=== PATIENT | female | born 1985 | race Caucasian/White ===

== ENCOUNTER 2016-06-15 11:41 | Emergency (ER) | payer OTHER ==
[~2016-06-15] VITALS: Wt 75.0 kg
[~2016-06-15 11:41] MED LIST: FOLI-49 PO; IBUP-1542 PO; IBUP400T22 PO; OSLT75C PO; PRENAT PO
[2016-06-15] MEDS ORDERED: ACETAMINOPHEN 325 MG TAB PO STA (13:30)
--- NOTE | 2016-06-15 13:37 | ERD ---
ER Documentation Chief Complaint Date/Time DATE: 06/15/16 TIME: 13:36 Chief Complaint BILATERAL ARM TINGLING FROM HANDS TO ELBOWS FOR 3 MOS. NO TRAUMA HPI This is a 30-year-old female presenting to the emergency department complaining of bilateral numbness and tingling from the elbow to the hands bilaterally for 3 months that comes and goes. Patient states that it has been more constant for the past week. Patient also complains of dizziness when she gets up from a chair, she feels like the room is spinning. She admits to having blurry vision. She denies any chest pain or shortness of breath. Denies any neck or back pain. Denies fevers ROS All systems reviewed and are negative except as per history of present illness. Medications Home Meds Active Scripts Nitrofurantoin Monohyd Macrocr* (Macrobid*) 100 Mg Capsr, 100 MG PO BID for 7 Days, CAP Prov:TRE ALCALA PA-C 06/15/16 Acetaminophen* (Tylenol*) 325 Mg Tablet, 2 TAB PO Q6 Y for PAIN AND OR ELEVATED TEMP, #30 TAB Prov:TRE ALCALA PA-C 06/15/16 Ibuprofen* (Motrin*) 400 Mg Tab, 400 MG PO Q6, #30 TAB Prov:MARLON OROZCO 02/23/16 Oseltamivir Phosphate* (Tamiflu*) 75 Mg Capsule, 75 MG PO BID for 5 Days, CAP Prov:MARLON OROZCO 02/23/16 Ibuprofen* (Ibuprofen*) 600 Mg Tab, 600 MG PO Q6, #20 TAB 0 Refills Prov:MARIKA GUZMAN MD 09/02/15 Reported Medications Folic Acid* (Folic Acid*) 1 Mg Tablet, 1 MG PO DAILY, TAB 12/25/13 Multivit/Min/Fol Ac/Iron/Pren* ( S*) 1 Tab Tab, 1 TAB PO DAILY, TAB 12/22/13 Allergies Allergies: Coded Allergies: No Known Drug Allergies (Verified Allergy, Unknown, 07/29/15) PMhx/Soc History of Surgery: No Anesthesia Reaction: No Hx Neurological Disorder: No Hx Respiratory Disorders: No Hx Cardiac Disorders: No Hx Psychiatric Problems: No Hx Miscellaneous Medical Probl: No Hx Alcohol Use: No Hx Substance Use: No Hx Tobacco Use: No Smoking Status: Never smoker Physical Exam Vitals Vital Signs Date Time Temp Pulse Resp B/P Pulse Ox O2 Delivery O2 Flow Rate FiO2 06/15/16 11:59 98.3 71 20 159/94 98 Physical Exam GENERAL: well-developed/well-nourished, in no apparent distress, non-toxic appearing Patient is morbidly obese HENT: NC/AT, bilateral tympanic membrane is normal with good cone of light, nares patent, oropharynx clear without exudates EYES: Conjunctiva normal, PERRLA, EOMI, no nystagmus noted NECK: Supple, no lymphadenopathy PULM: CTA bilaterally, no rales, rhonchi, or wheezing heard CV: Normal S1S2, RRR, good capillary refill GI: Soft, non-distended, normal bowel sounds, non-tender BACK: No midline tenderness, no masses, No CVAT. NTTP EXT: No clubbing, cyanosis, or edema NEURO: Alert and orientated to person, place, and time. CN II-IIX intact. Gait and coordination were normal. Hand curb setter helper strength were equal and within normal limits SKIN: Intact, normal turgor PSYCH: Normal mood and mentation, patient denied SI Result Diagram: 06/15/16 1345 06/15/16 1345 Results 24 hrs Laboratory Tests Test 06/15/16 13:45 Alanine Aminotransferase (ALT/SGPT) 34IU/L Albumin 4.4g/dl Albumin/Globulin Ratio 1.29 Alkaline Phosphatase 75IU/L Anion Gap 16 Aspartate Amino Transf (AST/SGOT) 20IU/L Basophils # 0.010^3/ul Basophils % 0.4% Blood Urea Nitrogen 7mg/dl Calcium Level Pending Carbon Dioxide Level 28mmol/L Chloride Level 104mmol/L Creatinine 0.55mg/dl Direct Bilirubin 0.00mg/dl Eosinophils # 0.210^3/ul Eosinophils % 2.5% Globulin 3.40g/dl Glucose Level 80mg/dl Hematocrit 41.0% Hemoglobin 13.7g/dl Indirect Bilirubin 0.5mg/dl Lymphocytes # 3.210^3/ul Lymphocytes % 32.7% Mean Corpuscular Hemoglobin 29.8pg Mean Corpuscular Hemoglobin Concent 33.5g/dl Mean Corpuscular Volume 89.2fl Mean Platelet Volume 7.6fl Monocytes # 0.610^3/ul Monocytes % 5.7% Neutrophils # 5.710^3/ul Neutrophils % 58.7% Nucleated Red Blood Cells # 0.010^3/ul Nucleated Red Blood Cells % 0.0/100WBC Platelet Count 86128^3/UL Potassium Level 4.3mmol/L Red Blood Count 4.6010^6/ul Red Cell Distribution Width 12.8% Sodium Level 144mmol/L Total Bilirubin 0.5mg/dl Total Protein 7.8g/dl Urine Bilirubin NEGATIVE Urine Clarity CLEAR Urine Color LT. YELLOW Urine Glucose NEGATIVE% Urine Hemoglobin TRACE Urine Ketones NEGATIVE Urine Leukocyte Esterase 1+ Urine Microscopic RBC Pending Urine Microscopic WBC Pending Urine Nitrite NEGATIVE Urine Specific [place] 1.010 Urine Total Protein NEGATIVE Urine Urobilinogen 0.2 E.U./dL Urine pH 7.5 White Blood Count 9.810^3/ul Current Medications Medications (Trade) Dose Ordered Sig/Janet Route PRN Reason Start Time Stop Time Status Last Admin Dose Admin Acetaminophen (Tylenol Tab) 650 mg ONCE STAT PO 06/15/16 13:30 06/15/16 13:31 DC 06/15/16 13:53 Procedures/MDM This is a 30-year-old female who is obese presenting to the emergency room complaining of bilateral numbness and tingling to her upper extremities from elbows to hands for the past 3 months, dizziness, headache for the past week. She did not have any dizziness in the ED On examination patient had a normal neurological exam. She was speaking clearly, ambulating well. I do not believe there is any emergent cause of the intermittent paresthesias. It may be related to anxiety. Patient did not have any neck or back pain however I discussed that she is suitable to follow-up with her primary care physician, they m,ay consider possible MRI for radiculopathy of paresthesias. My differential diagnoses include tension, migraine, and cluster headache, overuse medication headache, subarachnoid hemorrhage, meningitis, stroke. Neurology exam was normal and I don't recommend a CT scan at this time. EKG was unremarkable for acute cardiopulmonary conditions. Lab work was done. CBC did not show any evidence of leukocytosis or anemia. Urinalysis showed + leukocyte esterase therefore patient will be treated for a urinary tract infection. Patient is suitable to follow-up with her primary care physician tomorrow. Discussed return to the ER for any worsening symptoms. She is hemodynamically stable and neurovascularly intact. Prescriptions Macrobid and Tylenol were given. Discussed to follow up with a primary care physician in the next couple days. Return to the ER if condition worsens or not improving as expected. Patient agreed and understood this plan. EKG: read and signed off by myself and Rate/Rhythm: 72 bpm Normal Sinus Rhythm QRS, ST, T-waves: inverted T waves in V1, flattened T waves in III; No changes consistent w/ acute ischemia Impression: No evidence of ischemia or arrhythmia Departure Diagnosis: Primary Impression: Dizziness Additional Impressions: Paresthesia UTI (urinary tract infection) Urinary tract infection type: acute cystitis Hematuria presence: without hematuria Qualified Code: N30.00 - Acute cystitis without hematuria Condition: Stable TRE ALCALA PA-C Jun 15, 2016 13:37
[2016-06-15 13:58] LABS: BASOPHILS % 0.4 % (0.0-2.0); EOSINOPHILS # 0.2 10^3/ul (0.0-0.5); EOSINOPHILS % 2.5 % (0.0-7.0); HEMOGLOBIN 13.7 g/dl (12.0-16.0); LYMPHOCYTES # 3.2 10^3/ul (0.8-2.9); LYMPHOCYTES % 32.7 % (15.0-51.0); MEAN CORPUSCULAR HEMOGLOBIN 29.8 pg (29.0-33.0); MEAN CORPUSCULAR HGB CONC 33.5 g/dl (32.0-37.0); MEAN CORPUSCULAR VOLUME 89.2 fl (82.0-101.0); MEAN PLATELET VOLUME 7.6 fl (7.4-10.4); MONOCYTE # 0.6 10^3/ul (0.3-0.9); MONOCYTES % 5.7 % (0.0-11.0); NEUTROPHIL # 5.7 10^3/ul (1.6-7.5); NEUTROPHILS % 58.7 % (39.0-77.0); PLATELET COUNT 324 10^3/UL (140-440); RED CELL DISTRIBUTION WIDTH 12.8 % (11.5-14.5); UNCORRECTED WBC 9.8 10^3/ul (4.8-10.8); WHITE BLOOD COUNT 9.8 10^3/ul (4.8-10.8)
[2016-06-15] MEDS ORDERED: IBUP-1542 PO (13:58)
[2016-06-15] MEDS ORDERED: ACET325T33 PO (14:02)
[2016-06-15 14:05] LABS: ADD UMIC YES; URINE BILIRUBIN (Dip) NEGATIVE (NEGATIVE); URINE BLOOD (Dip) TRACE (NEGATIVE); URINE COLOR LT. YELLOW (YELLOW); URINE GLUCOSE (Dip) NEGATIVE (NEGATIVE); URINE KETONES (Dip) NEGATIVE (NEGATIVE); URINE LEUKOCYTE ESTERASE (Dip) 1+ (NEGATIVE); URINE NITRITE (Dip) NEGATIVE (NEGATIVE); URINE TOTAL PROTEIN (Dip) NEGATIVE (NEGATIVE); URINE UROBILINOGEN (Dip) 0.2 E.U./dL (0.1-1.0)
[2016-06-15 14:06] LABS: ALBUMIN 4.4 g/dl (3.3-4.9); CONDITION 1; POTASSIUM 4.3 mmol/L (3.5-5.1)
[2016-06-15 14:08] LABS: BILIRUBIN,INDIRECT 0.5 mg/dl (0-1.1); BILIRUBIN,TOTAL 0.5 mg/dl (0.2-1.3); CREATININE 0.55 mg/dl (0.44-1.00)
[2016-06-15 14:09] LABS: ALBUMIN/GLOBULIN RATIO 1.29; CALCIUM 9.6 mg/dl (8.4-10.2); TOTAL PROTEIN 7.8 g/dl (6.1-8.1)
[2016-06-15] MEDS ORDERED: NITR-58 PO (14:09)
[2016-06-15 14:12] LABS: SQUAMOUS EPITHELIAL CELL,UR MODERATE; URINE RBCS 0-2 /HPF (0)
== END 2016-06-15 15:02 | disposition home or self-care (01) ==
LOC: FTE 11:41
DX: R42 Dizziness and giddiness (principal); R20.2 Paresthesia of skin; N30.00 Acute cystitis without hematuria
CPT/HCPCS: 80053; 81001; 81003; 85025; 93005; Z7502; Z7610

== ENCOUNTER 2017-02-22 08:34 | Outpatient (CLI) | END 2017-02-22 09:28 | disposition home or self-care (01) ==

== ENCOUNTER 2017-02-22 09:37 | Emergency (ER) | END 2017-02-22 12:43 | disposition left against medical advice (07) | DX: O99.353 Diseases of the nervous system complicating pregnancy, third trimester (principal); G56.03 Carpal tunnel syndrome, bilateral upper limbs; Z3A.32 32 weeks gestation of pregnancy ==

== ENCOUNTER 2017-04-17 23:20 | Inpatient (IN) | payer OTHER ==
[~2017-04-17] VITALS: Ht 154.9 cm; Wt 94.1 kg
[~2017-04-17 23:20] MED LIST changes: -FOLI-49 PO; -IBUP-1542 PO; -IBUP400T22 PO; -OSLT75C PO
[2017-04-17 23:53] VITALS: Ht 154.9 cm; Wt 94.1 kg
[2017-04-17 23:54] VITALS: BP 107/63; PULSE 94; RESP 18
[2017-04-18] MEDS: OXYTOCIN 30 UNITS/LR 500 ML IV SCH
--- NOTE | 2017-04-18 01:56 | RADRPT ---
PROCEDURE: Limited OB ultrasound CLINICAL INDICATION: Labor. TECHNIQUE: Limited sonographic evaluation of the gravid uterus was performed to assess the amnioti c fluid volume. COMPARISON: None. FINDINGS: Single live intrauterine with cardiac heart rate of 134 beats per minute is identifi ed. The amniotic -fluid volume is 16.4 cm,. Fetus is in cephalic presentation. The placenta is lo cated posterior. IMPRESSION: 1. Amniotic fluid volume 16.4 cm. RPTAT: HMVK .Remigio Wiseman MD, Date Time Electronically viewed and signed by .Remigio Wiseman MD, on 04/18/2017 01:56 .K/
[2017-04-18] MEDS: LACTATED RINGER'S 1,000 ML IV SCH ×3 (02:55→18:19)
[2017-04-18] MEDS ORDERED: AMPICILLIN 2 GM/NS (PMX) 100 ML IV ONE (03:00)
[2017-04-18] MEDS ORDERED: CARBOPROST 250 MCG INJ IM PRN ×2 (03:00→23:30)
[2017-04-18] MEDS ORDERED: BUTORPHANOL 2 MG INJ IV PRN (03:00)
[2017-04-18] MEDS ORDERED: OXYTOCIN 30 UNITS/LR 500 ML IV PRN ×2 (03:00→23:30)
[2017-04-18] MEDS ORDERED: METHYLERGONOVINE 0.2 MG INJ IM PRN ×2 (03:00→23:30)
[2017-04-18] MEDS ORDERED: MISOPROSTOL 200 MCG TAB PR PRN ×2 (03:00→23:30)
[2017-04-18] MEDS ORDERED: LIDOCAINE 1% (MPF) 30 ML INJ INJ PRN (03:00)
[2017-04-18] MEDS ORDERED: OXYTOCIN 30 UNITS/LR 500 ML IV SCH ×3 (03:00)
[2017-04-18] MEDS ORDERED: IBUPROFEN 600 MG TAB PO PRN (03:00)
[2017-04-18] MEDS ORDERED: LACTATED RINGER'S 1,000 ML IV PRN (04:00)
--- NOTE | 2017-04-18 04:01 | HP ---
Date/Time of Note Date/Time of Note DATE: 04/18/17 TIME: 03:56 OB - History Hx of Present Free Text/Dictation 31 Year-old with SIUP at 39 6/7 wks presents with a chief complaint of decreased FM and UCS. She has been receiving her care with Dr. Dubose. She denies nausea, vomiting, shortness of breath, chest pain, and abdominal pain between contractions, headache, visual changes, vaginal bleeding or LOF. Chief Complaint: ucs, DFM Estimated Due Date: Apr 19, 2017 : 6 Para: 5 Spontaneous : 0 Care: None Ultrasounds: Normal mid trimester US Obstetrical Complications: None Medical Complications: None Past Family/Social History * Past Medical, Surgical, Family and Obstetric Histories reviewed from chart. Blood Type: A+ Rubella: immune RPR/VDRL: Negative GBS Status: Unknown HBsAG: Negative OB Admission Exam Vital Signs Vital Signs Vital Signs Date Time Temp Pulse Resp B/P Pulse Ox O2 Delivery O2 Flow Rate FiO2 04/17/17 23:54 97.7 94 18 107/63 Room Air Physical Exam Heart: Rhythm Normal Abdomen: WNL Extremities: Normal Reflexes: Normal Cervical Dilatation: 3cm Effacement: 75% Station: -3 Membranes: Intact Heart Rate: 140's Accelerations: Accelerations Present Decelerations: No Decelerations Varibility: Moderate Contractions on Admission: 6-10 Minutes Apart OB Assessment/Plan Other plan: 31 Year-old with SIUP at 39 6/7 wks with decreased FM and UCS - FHR: No sign of metabolic acidosis- Category I - Continious EFM, toco - CBC, blood type and screen - Analgesia options with R/B/A discussed in detail with patient - Epidural per patient request - Please see the orders - A+/Rubella: Immune/GBS: unk Admission, procedures, expectations, risks and possible complications have been discussed in detail with the patient. Risk of vaginal delivery including but not limited to bleeding, infection, cervical laceration, placental retention, injury to fetus, blood transfusion, blood transfusion related infection, risk of anesthesia, adhesion, cervical laceration, episiotomy/laceration, possible delivery with risk of bleeding, infection, injury to other organs ( bowel, bladder, ureter, vessels, nerves), injury to fetus, blood transfusion, blood transfusion related infection, risk of anesthesia, scar and hernia formation, needs for future , removal of uterus or any other indicated surgery discussed with the patient. She expressed understanding and repeats the risks. All of her questions were answered; all appropriate consents will be signed. PHYSICIAN'S VERIFICATION OF INFORMED CONSENT: The patient was counseled regarding the procedure, its indications, risks, potential complications and alternatives and any questions were answered. Consent was obtained. PLANNED PROCEDURE/TREATMENT: Vaginal delivery with possible vacuum/forceps delivery episiotomy, repair of laceration possible delivery PHYSICIAN'S VERIFICATION OF INFORMED CONSENT FOR BLOOD TRANSFUSION: There is a reasonable possibility that blood transfusion will be necessary as a result of the patient's procedure. I have discussed the following with the patient/patient's legal medical field representative: An explanation of the benefits and risks of the transfusion of blood or blood products and the possible alternatives. Al questions have been answered to the patient's/patients legal representatives satisfaction. INFORMED CONSENT: The patient has been informed of: - The nature of the proposed care, treatment, services, medic- Potential benefits, risks or side effects, including potential problems related to recuperation. - The likelihood of achieving care treatment and service goals. - Reasonable alternatives to the proposed care, treatment and service. - The relevant risks, benefits and side effects related to alternatives, including the possible results of not receiving care, treatment and services. - When indicated, any limitations on the confidentiality of information learned from or about the patient. - If appropriate, the risks, benefits and alternatives of the drugs to be used for sedation/analgesia including moderate sedation. - If appropriate, patient has been provided information on the risks, benefits and alternatives to the transfusion of blood and/or blood products. INDIRA GONZALEZ Apr 18, 2017 04:01
[2017-04-18 04:08] LABS: BASOPHILS % 0.3 % (0.0-2.0); EOSINOPHILS # 0.1 10^3/ul (0.0-0.5); EOSINOPHILS % 1.3 % (0.0-7.0); HEMATOCRIT 27.3 % (37.0-47.0); HEMOGLOBIN 8.9 g/dl (12.0-16.0); LYMPHOCYTES # 2.7 10^3/ul (0.8-2.9); LYMPHOCYTES % 25.3 % (15.0-51.0); MEAN CORPUSCULAR HEMOGLOBIN 26.4 pg (29.0-33.0); MEAN CORPUSCULAR HGB CONC 32.6 g/dl (32.0-37.0); MEAN PLATELET VOLUME 10.2 fl (7.4-10.4); MONOCYTE # 0.8 10^3/ul (0.3-0.9); MONOCYTES % 7.2 % (0.0-11.0); NEUTROPHIL # 6.9 10^3/ul (1.6-7.5); NEUTROPHILS % 65.1 % (39.0-77.0); PLATELET COUNT 185 10^3/UL (140-415); RED BLOOD COUNT 3.37 10^6/ul (4.20-5.40); WHITE BLOOD COUNT 10.7 10^3/ul (4.8-10.8)
[2017-04-18 04:21] LABS: INR 1.03; PROTIME 13.5 Sec (12.2-14.2); PT RATIO 1.1
[2017-04-18 04:22] LABS: PARTIAL THROMBOPLASTIN TIME 27.1 Sec (25.0-35.0)
--- NOTE | 2017-04-18 05:08 | TRIAGE ---
OB Triage Datetime Report Generated by CPN: 04/18/2017 05:08 Datetime: 04/18/2017 02:25 Stage of : OB Triage Datetime: 04/18/2017 02:00 Stage of : OB Triage Vaginal Exam Dilatation (cms): 3.0 Effacement (%): 60 Station: -3 Exam By: JAI EDWARDS Membrane Status: Intact Datetime: 04/18/2017 01:50 Stage of : OB Triage Datetime: 04/18/2017 01:28 Stage of : OB Triage Datetime: 04/18/2017 01:00 Stage of : OB Triage Comments: PT AMBULATED IN THE UNIT HALLWAY. Datetime: 04/18/2017 00:14 Comments: MONITORS OFF, INSTRUCTED PT WALK IN THE UNIT. Datetime: 04/18/2017 00:10 Stage of : OB Triage Datetime: 04/17/2017 23:58 Stage of : OB Triage Vaginal Exam Dilatation (cms): 3.0 Effacement (%): 60 Station: -3 Exam By: JAI EDWARDS Membrane Status: Intact Datetime: 04/17/2017 23:51 Stage of : OB Triage Maternal Assessment Level of Consciousness: Fully Conscious Maternal Assessment Level of Consciousness: Fully Conscious DTR's/Clonus: DTRs 2+; No Clonus DTR's/Clonus: DTRs 2+ Headache: Denies Blurred Vision: No Respiratory Effort: Unlabored; Regular Rhythm; Equal Expansion Breath Sounds, Left: Clear and Equal Breath Sounds, Right: Clear and Equal Nausea/Vomiting: Denies RUQ Epigastric Pain: Denies Lower Extremities Edema: None Upper Extremities Edema: None Facial Edema: None Temperature Route: Oral Fall Risk Assessment History of Falling: (0) No Secondary Diagnosis: (0) No Ambulatory Aid: (0) Bedrest/Nurse Assist IV Therapy: (0) No Gait: (0) Normal/Bedrest/Immobile Mental Status: (0) Oriented to Own Ability Fall Score: 0 Fall Risk Score Definition: No Risk: No action required Labor Evaluation Frequency: IRREGULAR Monitor Mode: External Duration (sec)2399: 60-70 (Annotations: UTERINE IRRITABILITY NOTED) Heart Rate FHR Baseline Rate: 135 Monitor Mode: External US Variability: Moderate 6-25 bpm Accelerations: 15X15 Decelerations: None Category: Category I Pain Assessment Pain Scale: 5 Pain Presence: Intermittent Pain Type: Contraction Pain Location: Abdomen Datetime: 04/17/2017 23:47 Time of Arrival: 04/17/2017 23:24 EGA: 39.5 Arrived By: Ambulatory Arrived From: Home Chief Complaint: PT C/O DECREASE MOVEMENT AND WAS TOLD COME TO [facility] FOR INDUCTION Movement: Decreased Contractions: Irregular Rupture of Membranes: Denies Vaginal Bleeding: None Vaginal Discharge: Denies Recent Sexual Intercouse: Denies Abdominal Trauma: Not Applicable Patient Complaints: Other Time Provider Notified: 04/18/2017 00:10 Provider Notified: DR GONZALEZ Initial Plan: INITIAL AND ONGOING AND MATERNAL ASSESSMENT Datetime: 02/22/2017 09:22 Stage of : OB Triage Maternal Assessment Level of Consciousness: Fully Conscious Labor Evaluation Frequency: NONE Monitor Mode: External Resting Tone [place]: Relaxed Heart Rate FHR Baseline Rate: 135 Monitor Mode: External US Variability: Moderate 6-25 bpm Accelerations: 15X15 Decelerations: None Category: Category I Pain Assessment Pain Scale: 6 Pain Presence: Constant Pain Type: Ache Pain Location: Right Hand; Left Hand Pain Goal: 3 Pain Relief Measures: Comfort Measures Membrane Status: Intact Vaginal Bleeding: None Datetime: 02/22/2017 09:01 Assessment Type: Triage Maternal Assessment Level of Consciousness: Fully Conscious DTR's/Clonus: DTRs 2+; No Clonus Headache: Denies Blurred Vision: No Respiratory Effort: Unlabored; Regular Rhythm; Equal Expansion Breath Sounds, Left: Clear and Equal Breath Sounds, Right: Clear and Equal Nausea/Vomiting: Denies RUQ Epigastric Pain: Denies Lower Extremities Edema: None Degree: None Upper Extremities Edema: None Degree: None Facial Edema: None Fall Risk Assessment History of Falling: (0) No Secondary Diagnosis: (0) No Ambulatory Aid: (0) Bedrest/Nurse Assist IV Therapy: (0) No Gait: (0) Normal/Bedrest/Immobile Mental Status: (0) Oriented to Own Ability Fall Score: 0 Fall Risk Score Definition: No Risk: No action required Datetime: 02/22/2017 08:54 Time of Arrival: 02/22/2017 08:29 EGA: 32.0 Arrived By: Ambulatory Arrived From: Home Chief Complaint: PT HERE C/O SWELLING OF HANDS Movement: Present Contractions: Denies/Absent Rupture of Membranes: Denies Vaginal Bleeding: None Vaginal Discharge: Denies Recent Sexual Intercouse: Denies Abdominal Trauma: Not Applicable Patient Complaints: None Time Provider Notified: 02/22/2017 08:55 Provider Notified: ARDALAN Initial Plan: NST Datetime: 02/22/2017 08:45 Monitor Mode: External Monitor Mode: External US
[2017-04-18] MEDS ORDERED: AMPICILLIN 1 GM/NS (PMX) 50 ML IV SCH (07:00)
[2017-04-18] MEDS ORDERED: OXYTOCIN 30 UNITS/LR 500 ML BAG IV ONE (07:00)
[2017-04-18] MEDS ORDERED: FENTAnyl 2MCG/ML-ROPIV 0.2% 100 ML ONE (17:59)
[2017-04-18] MEDS ORDERED: CEFAZOLIN 2 GM/50 ML (PMX) 50 ML IV SCH (19:30)
--- NOTE | 2017-04-18 19:34 | OPR ---
Operative Report Planned Procedure Free Text/Dictation term , CPD Procedure date Apr 18, 2017 Procedure(s) PRIMARY C/S Performed by see signature line Duck Farmer none Pre-procedure diagnosis CPD Anesthesia Type: epidural Post-Procedure Post-procedure diagnosis SAME Findings Live Baby [], Apgars [] and [], weight [], position [], [] presentation []cord. Estimated Blood Loss: 600 - 700 mls Specimen(s) none Grafts/Implant(s) none Complication(s) none Pt Condition post procedure: stable Procedure Description Under satisfactory [EPIDURAL ] anesthesia, the patient was prepped and draped and placed in a supine position, tilted to the left. Pfannenstiel incision was made, carried through the subcutaneous tissue. Bleeders brought under control with electrocautery. Fascia incised to the length of the incision. Rectus muscles from the fascia, divided midline. Peritoneum exposed, entered through a transverse incision. Exploration of abdomen revealed gravid uterus. Bladder flap was developed. Transverse incision was made in the lower segment of the uterus. Amniotic sac ruptured. [CLEAR] amniotic fluid noted. [] Nasal oropharyngeal suction was performed. The baby was handed to the team for immediate attention. The placenta was delivered manually intact. Uterine cavity was cleaned with wet sponge and drainage established. Uterus closed in 2 layers using [] in continuous fashion. Peritoneal cavity irrigated with warm saline. Sponge, needle and instrument count reported to be correct. Fascia closed with [ONE MONOCRYL], and skin closed with chula. Estimated blood loss [ 700]mL. RUBA JOSEPH MD Apr 18, 2017 19:34
[2017-04-18] MEDS ORDERED: morphine SULFATE/PF (10 MG/10 ML) INJ ONE (19:35)
[2017-04-18] MEDS ORDERED: PHENYLephrine (100 MCG/ML) 5ML SYG ONE ×4 (19:37→20:08)
[2017-04-18] MEDS ORDERED: CEFAZOLIN 2 GM/50 ML (PMX) 50 ML IVPB ONE (19:42)
[2017-04-18] MEDS ORDERED: ONDANSETRON 4 MG INJ ONE (20:08)
[2017-04-18] MEDS ORDERED: HYDROmorphONE 0.5 MG/0.5 ML SYG IV PRN ×2 (21:00)
[2017-04-18] MEDS ORDERED: ZOLPIDEM 5 MG TAB PO PRN (21:00)
[2017-04-18] MEDS ORDERED: KETOROLAC 30 MG INJ IV PRN (21:00)
[2017-04-18] MEDS ORDERED: NALOXONE (0.4 MG/ML) INJ IV PRN (21:00)
[2017-04-18] MEDS ORDERED: METOCLOPRAMIDE 10 MG INJ IV PRN (21:00)
[2017-04-18] MEDS ORDERED: FENTAnyl 50 MCG/ML VIAL IV PRN ×2 (21:00)
[2017-04-18] MEDS ORDERED: DIPHENHYDRAMINE 50 MG INJ IV PRN ×2 (21:00)
[2017-04-18] MEDS ORDERED: HYDROmorphONE (0.2 MG/ML) 10ML SYG IV PRN ×2 (21:00)
[2017-04-18] MEDS ORDERED: ONDANSETRON 4 MG INJ IV PRN ×2 (21:00)
[2017-04-18 21:45] VITALS: BP 109/58; PULSE 82; RESP 19
[2017-04-18 22:00] VITALS: BP 112/58; PULSE 97; RESP 20
[2017-04-18 22:15] VITALS: BP 114/55; PULSE 88; RESP 20
[2017-04-18 22:30] VITALS: BP 123/58; PULSE 89; RESP 20
[2017-04-18 23:30] VITALS: BP 108/68; PULSE 100; RESP 18
[2017-04-18] MEDS ORDERED: LANOLIN 7 GM TUBE TOP PRN (23:30)
[2017-04-18] MEDS ORDERED: NACL 0.9% 3 ML SYG IV SCH (23:30)
[2017-04-18] MEDS ORDERED: NA PHOSPHATE/BIPHOS 133 ML ENEMA PR PRN (23:30)
[2017-04-18 23:45] VITALS: BP 110/70; PULSE 88; RESP 20
[2017-04-19] VITALS (7 sets, daily range): BP systolic 92–102; BP diastolic 53–60; PULSE 82–104; RESP 18–20
[2017-04-19] MEDS: LACTATED RINGER'S 1,000 ML IV SCH ×4 (00:35→23:26)
[2017-04-19] MEDS: OXYTOCIN 30 UNITS/LR 500 ML IV SCH (01:08)
[2017-04-19] MEDS: KETOROLAC 30 MG INJ IV PRN ×2 (05:46→16:27)
[2017-04-19] MEDS ORDERED: INFLUENZA VIRUS VACCINE 0.5 ML (DISPENSING) IM* ONE (09:30)
--- NOTE | 2017-04-19 11:06 | PN ---
Date/Time of Note Date/Time of Note DATE: 04/19/17 TIME: 10:56 OB Subjective Subjective Subjective Denies any nausea or vomiting, Has Reyes catheter. Breast feeding, Not passed flatus. Decreased vaginal bleeding. OB Objective Objective Objective GA: A&O, NAD. Lungs: CTA bilaterally. CV: RRR Extremities: No calf tenderness. no cord palpable.nno Breast: No evidence of fissure. mastitis. Abdomen: appropriate tenderness in the section incision, No erythema, no erythema.No drainage . Normal bowel sounds. Hematology - 72 Hrs Test 04/18/17 02:00 White Blood Count 10.710^3/ul (4.8-10.8) Red Blood Count 3.3710^6/ul (4.20-5.40) #L Hemoglobin 8.9g/dl (12.0-16.0) #L Hematocrit 27.3% (37.0-47.0) #L Mean Corpuscular Volume 81.0fl (82.0-101.0) L Mean Corpuscular Hemoglobin 26.4pg (29.0-33.0) L Mean Corpuscular Hemoglobin Concent 32.6g/dl (32.0-37.0) Red Cell Distribution Width 15.0% (11.5-14.5) H Platelet Count 27070^3/UL (140-415) Mean Platelet Volume 10.2fl (7.4-10.4) # Neutrophils % 65.1% (39.0-77.0) Lymphocytes % 25.3% (15.0-51.0) Monocytes % 7.2% (0.0-11.0) Eosinophils % 1.3% (0.0-7.0) Basophils % 0.3% (0.0-2.0) Nucleated Red Blood Cells % 0.0/100WBC (0.0-0.0) Neutrophils # 6.910^3/ul (1.6-7.5) Lymphocytes # 2.710^3/ul (0.8-2.9) Monocytes # 0.810^3/ul (0.3-0.9) Eosinophils # 0.110^3/ul (0.0-0.5) Basophils # 0.010^3/ul (0.0-0.1) Nucleated Red Blood Cells # 0.010^3/ul (0.0-0.0) OB Assessment/Plan Other Assessment: POD #1 s/p section. Anemia, postop. Symptomatic Awaiting normal bowel function Plan: Routine Postop care ambulation iron BID with stool softener Plan: Expectant Management EVENS IGLEISAS MD Apr 19, 2017 11:06
[2017-04-19 11:57] LABS: BASOPHILS % 0.2 % (0.0-2.0); EOSINOPHILS % 0.3 % (0.0-7.0); HEMATOCRIT 24.8 % (37.0-47.0); LYMPHOCYTES # 1.4 10^3/ul (0.8-2.9); LYMPHOCYTES % 9.9 % (15.0-51.0); MEAN CORPUSCULAR HEMOGLOBIN 26.2 pg (29.0-33.0); MEAN CORPUSCULAR HGB CONC 32.3 g/dl (32.0-37.0); MEAN CORPUSCULAR VOLUME 81.3 fl (82.0-101.0); MEAN PLATELET VOLUME 9.9 fl (7.4-10.4); MONOCYTE # 0.9 10^3/ul (0.3-0.9); MONOCYTES % 6.3 % (0.0-11.0); NEUTROPHIL # 11.4 10^3/ul (1.6-7.5); NEUTROPHILS % 82.5 % (39.0-77.0); PLATELET COUNT 165 10^3/UL (140-415); RED BLOOD COUNT 3.05 10^6/ul (4.20-5.40); RED CELL DISTRIBUTION WIDTH 15.4 % (11.5-14.5); WHITE BLOOD COUNT 13.8 10^3/ul (4.8-10.8)
[2017-04-19] MEDS: IBUPROFEN 800 MG TAB PO SCH (21:36)
[2017-04-19] MEDS: POLYSACCHARIDE IRON COMPLEX CAP PO SCH (21:36)
[2017-04-19] MEDS: HYDROCODONE/APAP (5/325) TAB PO PRN (22:34)
[2017-04-20 04:00] VITALS: BP 104/53; PULSE 89; RESP 18
[2017-04-20] MEDS: IBUPROFEN 800 MG TAB PO SCH ×3 (05:47→21:45)
[2017-04-20] MEDS: LACTATED RINGER'S 1,000 ML IV SCH (07:26)
[2017-04-20 08:44] VITALS: BP 95/58; PULSE 89; RESP 17
[2017-04-20] MEDS ORDERED: INFLUENZA VIRUS VACCINE 0.5 ML (DISPENSING) IM* ONE (09:00)
[2017-04-20] MEDS: POLYSACCHARIDE IRON COMPLEX CAP PO SCH ×2 (09:05→21:45)
--- NOTE | 2017-04-20 10:53 | QN ---
Documentation Comment doing well vss abd soft d/c home next am RUBA JOSEPH MD Apr 20, 2017 10:53
--- NOTE | 2017-04-20 10:53 | DS ---
Date/Time of Note Date/Time of Note DATE: 04/20/17 TIME: 10:52 Discharge Summary Admission/Discharge Info Admit Date/Time Apr 18, 2017 at 02:25 Discharge Date/Time Discharge Diagnosis term preg Patient Condition: Stable Hospital Course unremakable Home Meds Reported Medications Multivit/Min/Fol Ac/Iron/Pren* ( S*) 1 Tab Tab, 1 TAB PO DAILY, TAB 12/22/13 Primary Care Provider Not On Staff Doctor Pending Labs Laboratory Tests Test 04/19/17 11:19 White Blood Count 13.810^3/ul (4.8-10.8) Red Blood Count 3.0510^6/ul (4.20-5.40) Hemoglobin 8.0g/dl (12.0-16.0) Hematocrit 24.8% (37.0-47.0) Mean Corpuscular Volume 81.3fl (82.0-101.0) Mean Corpuscular Hemoglobin 26.2pg (29.0-33.0) Mean Corpuscular Hemoglobin Concent 32.3g/dl (32.0-37.0) Red Cell Distribution Width 15.4% (11.5-14.5) Platelet Count 44245^3/UL (140-415) Mean Platelet Volume 9.9fl (7.4-10.4) Neutrophils % 82.5% (39.0-77.0) Lymphocytes % 9.9% (15.0-51.0) Monocytes % 6.3% (0.0-11.0) Eosinophils % 0.3% (0.0-7.0) Basophils % 0.2% (0.0-2.0) Nucleated Red Blood Cells % 0.0/100WBC (0.0-0.0) Neutrophils # 11.410^3/ul (1.6-7.5) Lymphocytes # 1.410^3/ul (0.8-2.9) Monocytes # 0.910^3/ul (0.3-0.9) Eosinophils # 0.010^3/ul (0.0-0.5) Basophils # 0.010^3/ul (0.0-0.1) Nucleated Red Blood Cells # 0.010^3/ul (0.0-0.0) RUBA JOSEPH MD Apr 20, 2017 10:53
[2017-04-20] MEDS: HYDROCODONE/APAP (5/325) TAB PO PRN ×2 (11:37→16:09)
--- NOTE | 2017-04-20 15:43 | CONS ---
Date/Time of Note Date/Time of Note DATE: 04/20/17 TIME: 15:42 Consultation Date/Type/Reason Admit Date/Time Apr 18, 2017 at 02:25 Initial Consult Date 04/19/17 Type of Consultation: Anesthesiology Reason for Consultation follow up 24 HR Interval Summary Free Text/Dictation pt seen and examined on 04/19/17 at bedside is POD#1 s/p c/s. Pt received duramorph spinal for post op pain relief. She states her pain is controlled adequately. No N/V/D/C/TABOR/Numbness in extremities. Will follow. Exam/Review of Systems Vital Signs Vitals Vital Signs Date Time Temp Pulse Resp B/P Pulse Ox O2 Delivery O2 Flow Rate FiO2 04/20/17 08:44 98.1 89 17 95/58 Room Air 04/19/17 16:42 92 21 Intake and Output 04/19/17 04/19/17 04/20/17 15:00 23:00 07:00 Intake Total 540 ml 1725 ml Output Total 300 ml 1350 ml 1000 ml Balance 240 ml 375 ml -1000 ml Results Result Diagram: 04/19/17 1119 Medications Medications Current Medications Cefazolin Sodium/ Dextrose 50 ml @ 100 mls/hr ONCE IV ; Start 04/18/17 at 19: 30 Lactated Ringer's (Lr) 1,000 ml @ 125 mls/hr Q8H IV Last administered on 04/19 15:23; Admin Dose 125 MLS/HR; Start 04/18/17 at 23:26 Acetaminophen/ Hydrocodone Bitart (Crapo (5/325)) 2 tab Q4H PRN PO PAIN LEVEL 7 -10 Last administered on 04/20/17 11:37; Admin Dose 2 TAB; Start 04/19/17 at 21:00 Ibuprofen (Motrin) 800 mg Q8 PO Last administered on 04/20/17 05:47; Admin Dose 800 MG; Start 04/19/17 at 22:00 Simethicone (Mylicon) 160 mg Q8H PRN PO DISTENSION/GAS/BLOATING; Start at 23:30 Sodium Biphosphate/ Sodium Phosphate (Fleet Enema) 133 ml DAILY PRN [place] CONSTIPATION; Start 04/18/17 at 23:30 Diphtheria/ Tetanus/Acell Pertussis (Adacel) 0.5 ml ONCE ONCE IM* ; Start at 09:00; Stop 04/21/17 at 09:01 Measles/Mumps/ Rubella Vaccine Live 0.5 ml 0.5 ml ONCE ONCE SC* ; Start at 09:00; Stop 04/21/17 at 09:01 Oxytocin/Lactated Ringer's 500 ml @ 0 mls/hr ONCE PRN IV For Hemorrhage Management; Start 04/18/17 at 23:30 Methylergonovine Maleate (Methergine) 0.2 mg ONCE PRN IM VAGINAL BLEEDING; Start 04/18/17 at 23:30 Carboprost Tromethamine (Hemabate) 250 mcg ONCE PRN IM VAGINAL BLEEDING; Start 04/18/17 at 23:30 Misoprostol (Cytotec) 1,000 mcg ONCE PRN [place] VAGINAL BLEEDING; Start 04/18/17 at 23:30 Polysaccharide Iron Complex (Niferex-150) 1 cap BID PO Last administered on t 09:05; Admin Dose 1 CAP; Start 04/19/17 at 21:00 IFRAH JASON Apr 20, 2017 15:43
[2017-04-20 16:00] VITALS: BP 110/66; PULSE 89; RESP 17
[2017-04-20 20:05] VITALS: BP 117/66; PULSE 94; RESP 18
[2017-04-21] MEDS: HYDROCODONE/APAP (5/325) TAB PO PRN (03:19)
[2017-04-21 04:00] VITALS: BP 115/68; PULSE 88; RESP 17
[2017-04-21] MEDS: IBUPROFEN 800 MG TAB PO SCH ×2 (05:36→13:27)
[2017-04-21 07:20] VITALS: BP 104/60; PULSE 88; RESP 19
[2017-04-21] MEDS ORDERED: MEASLES,MUMPS,RUBELLA VACCINE INJ SC* ONE (09:00)
[2017-04-21] MEDS ORDERED: DIPHTH/TET/ACEL PERTUSS (ADULT) 0.5 ML VIAL IM* ONE (09:00)
[2017-04-21] MEDS: POLYSACCHARIDE IRON COMPLEX CAP PO SCH (10:21)
== END 2017-04-21 17:38 | disposition home or self-care (01) | DRG 766 ==
LOC: OBT 23:20 → L-D 23:20 → OBT 04-18 02:25 → L-D 04-18 02:25 → PP1 04-18 23:26
PROVIDERS: ADMIT Obstetrics & Gynecology; ATTEND Obstetrics & Gynecology
PROC: 10D00Z1 Extraction of Products of Conception, Low, Open Approach (ICD-10-PCS; principal; 2017-04-18)
DX: O36.8130 Decreased fetal movements, third trimester, not applicable or unspecified (principal); Z37.0 Single live birth; Z3A.39 39 weeks gestation of pregnancy
CPT/HCPCS: 62319; 76815; 85025; 85610; 85730; 86592; 86900; 86901; 87340; 90686; 90715; 94760; 99464; G0463; J0290; J0595; J0690; J1885; J2210; J2274; J2370; J2405; J2590; J3010; J7120

== ENCOUNTER 2017-08-09 15:00 | Emergency (ER) | END 2017-08-09 15:24 | disposition home or self-care (01) ==

== ENCOUNTER 2017-08-20 15:07 | Emergency (ER) | END 2017-08-20 19:02 | disposition home or self-care (01) ==